=== PATIENT | male | born 2000 | race Caucasian/White ===

== ENCOUNTER → 2021-09-13 | Outpatient (CLI) | payer OTHER ==
[2020-12-14 19:22] VITALS: BP 99/66
[~2021-09-13] MED LIST: GADOTERATE 5 MMOL/10ML VIAL. INT ART ONE; IOHEXOL 300 MG/ML 50 ML VIAL. INT ART ONE; LIDOCAINE 1% Multi-Dose 20 ML VIAL. ID ONE
--- NOTE | 2021-09-13 17:05 | KCIC ---
Study: Fluoroscopically guided arthrogram of the right hip joint for MRI Indication: Right hip impingement syndrome. Right hip pain. Contrast: 0.1 cc Clariscan; approximately 1 cc iodinated contrast Technique: A timeout was performed prior to beginning the procedure in order to confirm patient identity and lat erality of the injection. The risks, benefits and alternatives of the procedure were discussed. Utilizing sterile technique, fluoroscopic guidance and local anesthesia with 1% lidocaine, the right hip joint was accessed utilizing a 22-gauge, 3.5" spinal needle. Confirmation of needle position was obtained with a small amount of radiopaque contrast. Subsequently, approximately 12 cc of a mixture c ontaining 15 cc saline, 5 cc lidocaine and 0.1 cc Clariscan was injected. There were no immediate pos t procedure complications. Fluoroscopy time: 15 seconds Number of images obtained: 2 Impression: Technically successful fluoroscopic guided arthrogram of the right hip joint without immediate postpr ocedure complication. Electronically signed by: AROLDO COSME MD (09/13/2021 5:02 PM) [id number]
--- NOTE | 2021-09-14 08:23 | KCIC ---
Study: MRI arthrogram of the right hip INDICATION: Right hip pain. COMPARISON: Hip radiographs 07/01/2021 TECHNIQUE: Multiplanar MR imaging of the right hip performed after the intra-articular injection of g adolinium. The details of the procedure, to include the volume of contrast administered, are describe d in a separate report. FINDINGS: Bones: Cam morphology with a relatively prominent bulge at the superolateral femoral head/neck juncti on such as seen on images 12 and 13 series 8. No avascular necrosis, stress reaction or subchondral c ystic change at the right hip. Labrum/cartilage: Torn labrum at the anterior/superior quadrant best seen on images 14 through 17 ser ies 6. Tiny paralabral cyst on image 15 series 6. No high-grade/full-thickness chondral defect or cho ndral delamination. Ligamentum teres: Intact. Greater trochanteric bursa: Normal. Musculotendinous: No tendon tear or relevant tendinosis around the right hip. Muscular bulk is mainta ined. Normal ischiofemoral space. Miscellaneous: No abnormality along the right sciatic nerve bundle. IMPRESSION: Torn labrum centered at the anterior/superior quadrant with a tiny associated paralabral cyst, refere nce images 14 through 17 series 6. The labral tear is seen in the setting of cam morphology. No focal chondral defect. Electronically signed by: AROLDO COSME MD (09/14/2021 8:20 AM) [id number]
== END | disposition home or self-care (01) ==
LOC: KCIC 13:08
PROVIDERS: ATTEND Orthopaedic Surgery Sports Medicine
DX: M25.551 Pain in right hip (principal); M25.851 Other specified joint disorders, right hip; Z72.89 Other problems related to lifestyle
CPT/HCPCS: 27093; 73719; 77002; A9575; J3490; Q9967

== ENCOUNTER → 2021-10-12 | Outpatient (CLI) | payer OTHER ==
[2020-12-14 19:22] VITALS: BP 99/66
--- NOTE | 2021-10-12 16:00 | KCIC ---
EXAM: Brain MRI without contrast. HISTORY: Migraines. TECHNIQUE: Multiplanar, multisequence magnetic resonance imaging of the brain was performed without c ontrast. COMPARISON: None. FINDINGS: There is no restricted diffusion to suggest acute or subacute infarction. There is no mass effect or midline shift. There is no hydrocephalus. The orbits are unremarkable. There is mild parana tonny sinus mucosal thickening. The mastoid air cells are clear. There are normal flow voids within the cerebral vessels. There is no suspicious calvarial lesion. There is no suspicious white matter lesio n. IMPRESSION: No acute intracranial finding. Electronically signed by: Angélica Márquez MD (10/12/2021 3:58 PM) [id number]
== END ==
LOC: KCIC MRI 08:20
PROVIDERS: ATTEND Nurse Practitioner Family
DX: G43.709 Chronic migraine without aura, not intractable, without status migrainosus (principal)
CPT/HCPCS: 70551